=== PATIENT | male | born 1975 | race Caucasian/White ===

== ENCOUNTER 2017-07-09 06:04 | Emergency (ER) | payer SELFPAY ==
[~2017-07-09] VITALS: Ht 177.8 cm; Wt 63.5 kg
--- NOTE | 2017-07-09 06:51 | NUR ---
pt BBA, c/o on sever LE weakness since 429, pt was unable to walk, a/o x4, follows commands, sat well on room air, v/s stable, no pain, iv inserted, labs drawn.
[2017-07-09 07:10] LABS: BASOPHILS % (AUTO) 0.3 % (0.0-2.0); CALCIUM, SERUM 8.9 mg/dL (8.5-10.1); EOSINOPHILS % (AUTO) 0.2 % (0.0-6.0); HEMATOCRIT 46 % (39-51); HEMOGLOBIN 15.6 g/dL (13.5-17.5); LYMPHOCYTES # (AUTO) 1.1 /CMM (0.8-4.8); LYMPHOCYTES % (AUTO) 11.1 % (20.0-44.0); MEAN CORPUSCULAR HEMOGLOBIN 31 PG (26.0-33.0); MEAN CORPUSCULAR HGB CONC 34 g/dl (31.0-36.0); MEAN CORPUSCULAR VOLUME 92 fL (80-96); NEUTROPHILS # (AUTO) 7.8 /CMM (1.8-8.9); NEUTROPHILS % (AUTO) 78.4 % (43.0-81.0); PLATELET COUNT (AUTO) 267 /CMM (150-450); POTASSIUM 3.1 mmol/L (3.5-5.1); RDW COEFFICIENT OF VARIATION 12.1 (11.5-15.0); RED BLOOD CELL COUNT(AUTO) 5.04 MIL/uL (4.5-6.0)
[2017-07-09 07:15] LABS: ALBUMIN 4.4 g/dL (3.4-5.0); TOTAL PROTEIN, SERUM 7.6 g/dL (6.4-8.2)
[2017-07-09] MEDS ORDERED: POTASSIUM CHLORIDE 20 MEQ TAB.PRT.SR PO ONE (07:30)
[2017-07-09] MEDS: POTASSIUM CHLORIDE 20 MEQ TAB.PRT.SR PO ONE ×2 (07:33→07:34)
--- NOTE | 2017-07-09 07:38 | NUR ---
MEDICATED PATIENT PER MD ORDERS.
[2017-07-09 07:41] VITALS: BP 124/81
--- NOTE | 2017-07-09 07:43 | NUR ---
IV removed. Catheter intact and site benign. Pressure and 4x4 applied to site. No bleeding noted. Patient discharged to home in stable condition. Written and verbal after care instructions given. Patient verbalizes understanding of instruction.
== END 2017-07-09 07:42 | disposition home or self-care (01) ==
LOC: ER 06:07
DX: E87.6 Hypokalemia (principal); R20.2 Paresthesia of skin; F41.9 Anxiety disorder, unspecified
CPT/HCPCS: 36415; 80053; 85025; 99284; A4606; Z7610